=== PATIENT | female | born 1950 | race Caucasian/White ===

== ENCOUNTER 2017-07-01 16:58 | Emergency (ER) | payer OTHER ==
[~2017-07-01] VITALS: Ht 167.6 cm; Wt 79.0 kg
[2017-07-01 16:59] VITALS: Ht 167.6 cm; Wt 79.0 kg
[2017-07-01] MEDS ORDERED: LEVO100T14 PO (17:13)
[2017-07-01] MEDS ORDERED: FURO-85 PO (17:13)
[2017-07-01] MEDS ORDERED: MULT-506 PO (17:13)
[2017-07-01] MEDS ORDERED: GLUC10007 PO (17:13)
[2017-07-01] MEDS ORDERED: SODIUM CHLORIDE 0.9% 1000ML 1,000 ML IV STA (17:22)
[2017-07-01] MEDS ORDERED: KETOROLAC TROMETHAMINE 30 MG/ML VIAL IV STA (17:22)
--- NOTE | 2017-07-01 17:30 | EMERGENCY ROOM VISIT NOTE ---
History Report prepared by Laurel: Chidi Barraza Under the Supervision of: Dr. Cory Mandujano M.D. First contact with patient: 17:09 Chief Complaint: FOOT PAIN Stated Complaint: CAN'T PUT PRESSURE ON L FOOT, HAD SURGERY TUES History of Present Illness The patient is a 67 year old female who presents to the Emergency Room with complaints of worsening left foot pain that began yesterday morning. She rates her discomfort as a 2/10 in severity. The patient states that she had a partial hysterectomy and bladder tack surgery via laparoscopy four days ago. She states she had the bladder tack done at [facility] due to a prolapse. She states that she had the partial hysterectomy due to her age and because they were already performing the tack surgery. The patient reports the surgeries were both performed under anesthesia. She reports that she went home the next morning and was normal and able to ambulate. The patient states that starting yesterday morning she noticed she was experiencing a shooting pain in her left foot when she put it on the ground. She reports that she was able to ambulate but had to limp due to the pain. The patient states that last night she was not able to sleep due to her foot pain. She reports her pain worsened this morning and she could not put weight on left side. The patient states that she has also been experiencing fevers and fatigue. She states she took Tramadol and Ibuprofen for her symptoms today without any relief. She denies chest pain, nausea, vomiting, cough, congestion, diarrhea, urinary symptoms, headaches, dizziness, similar previous symptoms, hitting her foot, a history of diabetes, plantar fasciatus, painful joints, walking a lot since the surgery, walking in barefooted. The patient reports a history of varicose veins. Source of History: patient Onset: yesterday morning Position: foot (left) Symptom Intensity: 2/10 Timing: worsening Modifying Factors (Relieving): tylenol, other (Tramadol) Associated Symptoms: + fevers, + fatigue, No headache, No cough, No chest pain, No SOB, No nausea, No vomiting, No diarrhea, No urinary symptoms Note: Denies: dizziness, congestion, painful joints, hitting her foot Review of Systems See HPI for pertinent positives and negatives. A total of ten systems were reviewed and were otherwise negative. Past Medical & Surgical Medical Problems: (1) Varicose vein of leg Surgical Problems: (1) History of bladder surgery (2) History of partial hysterectomy Family History Patient reports no known family medical history. Social History Marital Status: Housing Status: lives with significant other Occupation Status: retired Current/Historical Medications Scheduled Furosemide (Lasix), Unknown Dose PO DAILY Glucosamine Sulfate (Glucosamine), 1,000 MG PO DAILY Levothyroxine Sodium (Unithroid Direct), 100 MCG PO DAILY Multivitamin (Multivitamin), 1 TAB PO DAILY Scheduled PRN Ibuprofen Tab (Motrin), 800 MG PO Q8H PRN for Pain Allergies Coded Allergies: No Known Allergies (Unverified , 07/01/17) Physical Exam Vital Signs Date Time Temp Pulse Resp B/P (MAP) Pulse Ox O2 Delivery O2 Flow Rate FiO2 07/01/17 20:38 77 18 122/63 96 07/01/17 18:29 37.9 80 16 125/72 98 Room Air 07/01/17 16:59 38.4 90 16 130/82 95 Room Air Physical Exam GENERAL: Awake, alert, well-appearing, in no distress HENT: Normocephalic, atraumatic. Dry mucous membranes. EYES: Normal conjunctiva. Sclera non-icteric. NECK: Supple. No nuchal rigidity. FROM. No JVD. RESPIRATORY: Clear to auscultation. CARDIAC: Regular rate, normal rhythm. Extremities warm and well perfused. Pulses equal. ABDOMEN: Soft, non-distended. No tenderness to palpation. No rebound or guarding. No masses. RECTAL: Deferred. MUSCULOSKELETAL: Chest examination reveals no tenderness. The back is symmetrical on inspection without obvious abnormality. There is no CVA tenderness to palpation. No joint edema. LOWER EXTREMITIES: Calves are equal size bilaterally and non-tender. Mild 1+ edema to the left ankle and foot with mild tenderness the plantar surface and dorsum of midfoot. Mild warmth. No crepitus. No discoloration. NEURO: Normal sensorium. No sensory or motor deficits noted. SKIN: No rash or jaundice noted. Medical Decision & Procedures ER Provider Diagnostic Interpretation: Radiology results as stated below per my review and radiologist interpretation: L VENOUS DOPP LOWER EXT UNILAT CLINICAL HISTORY: 67 years-old Female presenting with pain swelling. TECHNIQUE: Real-time grayscale and color and spectral Doppler ultrasound imaging of the veins of the left lower extremity was performed. Compression and augmentation were also utilized. COMPARISON: None. FINDINGS: Left: Common femoral vein: Patent. Greater saphenous vein: Patent. Deep femoral vein: Patent. Femoral vein: Patent. Popliteal vein: Patent. Calf veins: Patent. Other: None. IMPRESSION: No evidence of deep venous thrombosis. Electronically signed by: Bao Machuca M.D. 07/01/2017 6:56 PM Dictated Date/Time: 07/01/2017 6:56 PM L FOOT MIN 3 VIEWS ROUTINE CLINICAL HISTORY: 67 years-old Female presenting with pain swelling. TECHNIQUE: Frontal, oblique, and lateral views of the left foot were obtained. COMPARISON: None. FINDINGS: The first metatarsophalangeal angle is abnormal. No significant degenerative change of the first MTP. Mild overlying soft tissue swelling. Osteopenia may be present. Allowing for this, no acute fracture or acute malalignment. Accessory navicular noted. Prominent enthesophyte at the insertion of the Achilles dependent and origin of the plantar fascia. Mild degenerative changes noted at the tarsometatarsal articulations. IMPRESSION: 1. No acute osseous injury of the foot. 2. Hallux valgus deformity. Electronically signed by: Bao Machuca M.D. 07/01/2017 6:32 PM Dictated Date/Time: 07/01/2017 6:30 PM CHEST ONE VIEW PORTABLE CLINICAL HISTORY: 67 years-old Female presenting with ABDOMINAL PAIN/GI. TECHNIQUE: Portable upright AP view of the chest was obtained. COMPARISON: None. FINDINGS: Atherosclerosis of the aortic arch. Cardiac silhouette top normal in size. Minimal basilar opacities. No pleural effusion or pneumothorax. Degenerative changes of the thoracic spine. Degenerative changes of the bilateral glenohumeral joints. A loose body is noted on the left. Cholecystectomy clips noted. IMPRESSION: 1. Cardiomegaly. No other convincing evidence of acute cardiopulmonary disease. Electronically signed by: Bao Machuca M.D. 07/01/2017 6:29 PM Dictated Date/Time: 07/01/2017 6:28 PM L ANKLE MIN 3 VIEWS ROUTINE CLINICAL HISTORY: 67 years-old Female presenting with left ankle pain swelling. TECHNIQUE: Frontal, mortise, and lateral views of the left ankle were obtained. COMPARISON: None. FINDINGS: Apparent widening of the ankle mortise laterally. The distal tibiofibular articulation remains congruent. The medial and lateral clear spaces also maintained without evidence of widening. No acute fracture is evident. No advanced degenerative change. Mild diffuse soft tissue swelling noted. Prominent enthesophytes at the insertion of the Achilles tendon and origin of the plantar fascia. IMPRESSION: Apparent widening of the ankle mortise could suggest ligamentous instability, which are be better evaluated on MR. No acute osseous injury. Electronically signed by: Bao Machuca M.D. 07/01/2017 6:30 PM Dictated Date/Time: 07/01/2017 6:29 PM Laboratory Results 07/01/17 17:45 Red Blood Count 4.21, Mean Corpuscular Volume 95.2, Mean Corpuscular Hemoglobin 32.1, Mean Corpuscular Hemoglobin Concent 33.7, Mean Platelet Volume 9.5, Neutrophils (%) (Auto) 68.5, Lymphocytes (%) (Auto) 20.3, Monocytes (%) (Auto) 10.2, Eosinophils (%) (Auto) 0.6, Basophils (%) (Auto) 0.1, Neutrophils # (Auto ) 5.93, Lymphocytes # (Auto) 1.76, Monocytes # (Auto) 0.88, Eosinophils # (Auto ) 0.05, Basophils # (Auto) 0.01 07/01/17 17:45 Test 07/01/17 17:35 07/01/17 17:45 07/01/17 17:55 Influenza Type A (RT-PCR) Neg for Influ A (NEG) Influenza Type B (RT-PCR) Neg for Influ B (NEG) White Blood Count 8.66 K/uL (4.8-10.8) Red Blood Count 4.21 M/uL (4.2-5.4) Hemoglobin 13.5 g/dL (12.0-16.0) Hematocrit 40.1 % (37-47) Mean Corpuscular Volume 95.2 fL (80-100) Mean Corpuscular Hemoglobin 32.1 pg (25-34) Mean Corpuscular Hemoglobin Concent 33.7 g/dl (32-36) Platelet Count 247 K/uL (130-400) Mean Platelet Volume 9.5 fL (7.4-10.4) Neutrophils (%) (Auto) 68.5 % Lymphocytes (%) (Auto) 20.3 % Monocytes (%) (Auto) 10.2 % Eosinophils (%) (Auto) 0.6 % Basophils (%) (Auto) 0.1 % Neutrophils # (Auto) 5.93 K/uL (1.4-6.5) Lymphocytes # (Auto) 1.76 K/uL (1.2-3.4) Monocytes # (Auto) 0.88 K/uL (0.11-0.59) Eosinophils # (Auto) 0.05 K/uL (0-0.5) Basophils # (Auto) 0.01 K/uL (0-0.2) RDW Standard Deviation 46.4 fL (36.4-46.3) RDW Coefficient of Variation 13.4 % (11.5-14.5) Immature Granulocyte % (Auto) 0.3 % Immature Granulocyte # (Auto) 0.03 K/uL (0.00-0.02) Anion Gap 7.0 mmol/L (3-11) Est Creatinine Clear Calc Drug Dose 83.9 ml/min Estimated GFR () 104.2 Estimated GFR (Non- 89.9 BUN/Creatinine Ratio 25.9 (10-20) Calcium Level 9.0 mg/dl (8.5-10.1) Urine Color YELLOW Urine Appearance CLEAR (CLEAR) Urine pH 5.5 (4.5-7.5) Urine Specific Baldwin 1.016 (1.000-1.030) Urine Protein NEG (NEG) Urine Glucose (UA) NEG (NEG) Urine Ketones NEG (NEG) Urine Occult Blood 2+ (NEG) Urine Nitrite NEG (NEG) Urine Bilirubin NEG (NEG) Urine Urobilinogen NEG (NEG) Urine Leukocyte Esterase SMALL (NEG) Urine WBC (Auto) 1-5 /hpf (0-5) Urine RBC (Auto) 10-30 /hpf (0-4) Urine Hyaline Casts (Auto) 0 /lpf (0-5) Urine Epithelial Cells (Auto) 10-20 /lpf (0-5) Urine Bacteria (Auto) NEG (NEG) Laboratory results reviewed by me Medications Administered Medications (Trade) Dose Ordered Sig/Selvin Route Start Time Stop Time Status Last Admin Dose Admin Sodium Chloride 1,000 ml @ 999 mls/hr Q1H1M STAT IV 07/01/17 17:22 07/01/17 18:22 DC 07/01/17 17:46 999 MLS/HR Ketorolac Tromethamine (Toradol Inj) 15 mg STK-MED ONCE .ROUTE 07/01/17 17:35 07/01/17 17:36 DC 07/01/17 17:46 15 MG Acetaminophen (Tylenol Tab) 1,000 mg NOW STAT PO 07/01/17 19:35 07/01/17 19:36 DC 07/01/17 19:56 1,000 MG ED Course 1713: The patient was evaluated in room C04. A complete history and physical exam was performed. 2000: I reevaluated the patient. Discussed results and discharge instructions: She verbalized understanding and agreement. The patient is ready for discharge. Medical Decision I reviewed the patient's past medical history, medications, and the nursing notes as described above. The patient's presentation and history were concerning for DVT, superficial thrombus, thrombophlebitis, ankle sprain, soft tissue injury, fracture, viral illness, UTI. The patient is a 59-year-old woman presents emergency department with fevers and left lower extremity swelling that occur in the setting of having a partial hysterectomy and bladder tacking earlier in the week per hpi. On arrival the patient is in no acute distress with a temp of 38.4, vital signs otherwise stable. Labs are unremarkable. Flu negative. Duplex negative for DVT. Plain films of the left foot and ankle demonstrate a widened mortise suspicious for ligamentous injury. The patient denies any recent trauma or injuries however given the radiographic findings will place in a walking boot with Jg bandage. Plan for outpatient orthopedics follow-up. The patient's fever possibly related to early viral illness. Given that she is otherwise well-appearing further emergent workup indicated at this time. Findings and plan for follow-up reviewed with patient. Patient agreeable and d/c'd per discharge instructions. Medication Reconcilliation Current Medication List: was personally reviewed by me Blood Pressure Screening Patient's blood pressure: Normal blood pressure Impression Primary Impression: Ankle pain, left Scribe Attestation The scribe's documentation has been prepared under my direction and personally reviewed by me in its entirety. I confirm that the note above accurately reflects all work, treatment, procedures, and medical decision making performed by me. Departure Information Dispostion Home / Self-Care Prescriptions Ibuprofen Tab (MOTRIN) 800 Mg Tab 800 MG PO Q8H Y for Pain for 7 Days, #21 TAB Prov: Cory Mandujano M.D. 07/01/17 Referrals Ed Polanco M.D. (PCP) Gaurav Avelar D.O. Patient Instructions ED Sprain Ankle, My [facility] Additional Instructions Please follow up with your primary care physician and orthopedics, Dr. Avelar, for re-evaluation. The cause of your symptoms is possibly due to ligamentous injury to your ankle. Your fever may be possibly due to an early viral illness. Otherwise, your exam, xrays, ultrasound, and lab results did not show signs of an emergent condition at this time. Acetaminophen or ibuprofen for pain and fevers as needed. Drink plenty of fluids to ensure hydration. Return to the emergency department for worsening symptoms as described in the accompanying instructions.
[2017-07-01] MEDS ORDERED: KETOROLAC TROMETHAMINE 15 MG/ML VIAL ONE (17:35)
[2017-07-01 17:57] LABS: BASO % 0.1 %; BASO ABS # 0.01 K/uL (0-0.2); EOS % 0.6 %; EOS ABS # 0.05 K/uL (0-0.5); HEMATOCRIT 40.1 % (37-47); HEMOGLOBIN 13.5 g/dL (12.0-16.0); IG# 0.03 K/uL (0.00-0.02); LYMPH % 20.3 %; LYMPH ABS # 1.76 K/uL (1.2-3.4); MEAN CELL VOLUME 95.2 fL (80-100); MEAN CORPUSCULAR HEMOGLOBIN 32.1 pg (25-34); MEAN CORPUSCULAR HGB CONC 33.7 g/dl (32-36); MEAN PLATELET VOLUME 9.5 fL (7.4-10.4); MONO % 10.2 %; MONO ABS # 0.88 K/uL (0.11-0.59); NEUT % 68.5 %; NEUT ABS # 5.93 K/uL (1.4-6.5); PLATELET COUNT 247 K/uL (130-400); RED CELL DISTRIBUTION WIDTH CV 13.4 % (11.5-14.5); RED CELL DISTRIBUTION WIDTH SD 46.4 fL (36.4-46.3); WHITE BLOOD COUNT 8.66 K/uL (4.8-10.8)
[2017-07-01 18:14] LABS: CREATININE 0.68 mg/dl (0.60-1.20); POTASSIUM 3.6 mmol/L (3.5-5.1)
[2017-07-01 18:29] VITALS: TEMP 37.9
--- NOTE | 2017-07-01 18:30 | DIAGNOSTIC IMAGING REPORT ---
CHEST ONE VIEW PORTABLE CLINICAL HISTORY: 67 years-old Female presenting with ABDOMINAL PAIN/GI. TECHNIQUE: Portable upright AP view of the chest was obtained. COMPARISON: None. FINDINGS: Atherosclerosis of the aortic arch. Cardiac silhouette top normal in size. Minimal basilar opacities. No pleural effusion or pneumothorax. Degenerative changes of the thoracic spine. Degenerative changes of the bilateral glenohumeral joints. A loose body is noted on the left. Cholecystectomy clips noted. IMPRESSION: 1. Cardiomegaly. No other convincing evidence of acute cardiopulmonary disease. Electronically signed by: Bao Machuca M.D. 07/01/2017 6:29 PM Dictated Date/Time: 07/01/2017 6:28 PM
--- NOTE | 2017-07-01 18:32 | DIAGNOSTIC IMAGING REPORT ---
L ANKLE MIN 3 VIEWS ROUTINE CLINICAL HISTORY: 67 years-old Female presenting with left ankle pain swelling. TECHNIQUE: Frontal, mortise, and lateral views of the left ankle were obtained. COMPARISON: None. FINDINGS: Apparent widening of the ankle mortise laterally. The distal tibiofibular articulation remains congruent. The medial and lateral clear spaces also maintained without evidence of widening. No acute fracture is evident. No advanced degenerative change. Mild diffuse soft tissue swelling noted. Prominent enthesophytes at the insertion of the Achilles tendon and origin of the plantar fascia. IMPRESSION: Apparent widening of the ankle mortise could suggest ligamentous instability, which are be better evaluated on MR. No acute osseous injury. Electronically signed by: Bao Machuca M.D. 07/01/2017 6:30 PM Dictated Date/Time: 07/01/2017 6:29 PM
--- NOTE | 2017-07-01 18:34 | DIAGNOSTIC IMAGING REPORT ---
L FOOT MIN 3 VIEWS ROUTINE CLINICAL HISTORY: 67 years-old Female presenting with pain swelling. TECHNIQUE: Frontal, oblique, and lateral views of the left foot were obtained. COMPARISON: None. FINDINGS: The first metatarsophalangeal angle is abnormal. No significant degenerative change of the first MTP. Mild overlying soft tissue swelling. Osteopenia may be present. Allowing for this, no acute fracture or acute malalignment. Accessory navicular noted. Prominent enthesophyte at the insertion of the Achilles dependent and origin of the plantar fascia. Mild degenerative changes noted at the tarsometatarsal articulations. IMPRESSION: 1. No acute osseous injury of the foot. 2. Hallux valgus deformity. Electronically signed by: Bao Machuca M.D. 07/01/2017 6:32 PM Dictated Date/Time: 07/01/2017 6:30 PM
[2017-07-01 18:45] LABS: INFLUENZA A PCR Neg for Influ A (NEG); INFLUENZA B PCR Neg for Influ B (NEG)
--- NOTE | 2017-07-01 18:57 | DIAGNOSTIC IMAGING REPORT ---
L VENOUS DOPP LOWER EXT UNILAT CLINICAL HISTORY: 67 years-old Female presenting with pain swelling. TECHNIQUE: Real-time grayscale and color and spectral Doppler ultrasound imaging of the veins of the left lower extremity was performed. Compression and augmentation were also utilized. COMPARISON: None. FINDINGS: Left: Common femoral vein: Patent. Greater saphenous vein: Patent. Deep femoral vein: Patent. Femoral vein: Patent. Popliteal vein: Patent. Calf veins: Patent. Other: None. IMPRESSION: No evidence of deep venous thrombosis. Electronically signed by: Bao Machuca M.D. 07/01/2017 6:56 PM Dictated Date/Time: 07/01/2017 6:56 PM
[2017-07-01] MEDS ORDERED: ACETAMINOPHEN 500 MG TAB PO STA (19:35)
[2017-07-01] MEDS ORDERED: IBUP-1451 PO (20:15)
[2017-07-01 20:38] VITALS: BP 122/63; PULSE 77; O2SAT 96
== END 2017-07-01 20:39 | disposition home or self-care (01) ==
LOC: C.EDB 16:59 → C.EDC 20:39
DX: M25.572 Pain in left ankle and joints of left foot (principal); Z79.899 Other long term (current) drug therapy